=== PATIENT | female | born 1960 | race Caucasian/White ===

== ENCOUNTER 2018-08-04 07:07 | Inpatient (IN) ==
[2018-08-04] MEDS ORDERED: Bupivacaine/Epinephrine Inj 0.25% 50 ML Vial ONE (07:32)
[2018-08-04] MEDS ORDERED: Metoprolol Tartrate 25 MG Tablet PO SCH (07:50)
[2018-08-04] MEDS ORDERED: Chlorhexidine Gluconate 2% 1 Pack (2 Cloths) TOPICAL SCH (07:50)
[2018-08-04] MEDS ORDERED: Sodium Chlor 0.9% Inj 500 ML IV.SIG SCH (08:00)
[2018-08-04] MEDS ORDERED: Sodium Chlor 0.9% Inj 250 ML ONE (08:28)
[2018-08-04] MEDS ORDERED: Chlorhexidine 4% Topical 120 APPLIC/120 ML Bottle TOPICAL SCH (08:30)
[2018-08-04] MEDS ORDERED: ceFAZolin 2 GM Premix Inj 2 GM/50 ML PIGGYBACK IV.SIG SCH (09:00)
[2018-08-04] MEDS ORDERED: Vancomycin Inj 1,000 MG in Sodium Chlor 0.9% Inj 250 ML IV.SIG SCH (09:00)
[2018-08-04] MEDS ORDERED: Bisacodyl 10 MG Supp RECTAL PRN (12:16)
[2018-08-04] MEDS ORDERED: Post-op Orders (for Pharmacy) OTHER STA (12:16)
[2018-08-04] MEDS ORDERED: Morphine Inj 4 MG/ML Vial IV.PUSH PRN (12:16)
--- NOTE | 2018-08-04 12:23 | P.OP ---
- Preoperative Diagnosis (1) Cervical disc herniation Preoperative Diagnosis: Herniated nucleus pulposus at C4-5, C5-6, C6-7. Right greater than left cervical radiculopathy. Postoperative Diagnosis: Same Date of procedure: 08/04/18 Procedure: Posterior cervical fusion C4-5, C5-6 and C6-7 posterior Placement of intra-facet cage C4-5 bilateral, C5-6 bilateral, C6-7 bilateral. Left posterior iliac crest bone graft. Bone grafting of the cervical spine Anesthesia: GETA Surgeon: Zuhair Garcia MD Bolt Machine Operator: Beth Sahu PA-C Operation and Findings: EBL: 50 cc INDICATIONS: This patient is a 58-year-old female with a work-related injury to her cervical spine. She has evidence of a 2 level disc herniation with an osteophyte disc complex and an unstable third level. She is having progressive radicular findings in developing a very hard radiculopathy. She now presents for surgical treatment. NOTE: Beth Sahu PA-C was present for the entire surgical procedure as my nurse first assist. In my medical opinion her skill and care was necessary for proper management of this patient PROCEDURE: The patient was brought the operating room and anesthetized in the supine position. The patient was positioned prone on a Armando table. The arms were placed out along the side and taping was utilized to ensure adequate visualization. AP and lateral radiographic images were used identifying the proper level and allowing excellent exposure for purpose of the cervical fusion. A timeout was done and antibiotics were given within a routine time window. A small incision was made over the left iliac crest bone graft. A series of cores of bone graft were harvested with a special percutaneous device. The bone graft was taken to the back table to be mixed with stem cell bone graft for the later part of the case Using AP and lateral radiographs, skin markings were made. On the right side and 18-gauge spinal needle was placed down to the proper level. The left side a separate incision was made and we used the PusherRAX system. Exposure was afforded down to the proper level. Under visualization, a chisel was placed down to the C C6-7 level. This was confirmed under radiographs to be in proper position. Exposure was satisfactory. This is placed down into the facet joint at that level. A decorticating device was utilized decorticating the bone of the facet above and below. A retractor was placed down over the access chisel allowing exposure to the joint and exposure to the articular cartilage. A drilling system was utilized removing cartilage and bone this region followed by a rasp. On the back table demineralized bone matrix was mixed with Nucel stem cells and a autogenous bone graft. A combination of both these were then paced placed into proper cages. The cages were impacted into the proper position and checked again under AP and lateral fluoroscopic images. A transfixation screw was placed into the cage having excellent fixation into the facet joint of the level above. The back side of the cage was filled with additional bone graft which was tamped into position. The retractor was removed. On the right side a separate incision was made. Using the likewise sequence of access to the same level, an incision was made allowing visualization for placement of an access chisel which was placed into the joint followed by decortication with excellent visualization. A final retractor was positioned holding this while we were able to drill and use the rasp. The joint was prepared and we created a space for the cage. The cage was filled with bone graft and impacted in proper position. A transfixation screw was fixated at that time and alignment was satisfactory. Additional bone graft placed along the posterior aspect of the cage and the facet joint and was tamped into position. At the C5-6 level, this was repeated in the likewise fashion. A decorticating device was utilized decorticating the bone of the facet above and below. A retractor was placed down over the access chisel allowing exposure to the joint and exposure to the articular cartilage. A drilling system was utilized removing cartilage and bone this region followed by a rasp. On the back table demineralized bone matrix was mixed with Nucel stem cells and a autogenous bone graft. A combination of both these were then paced placed into proper cages. The cages were impacted into the proper position and checked again under AP and lateral fluoroscopic images. A transfixation screw was placed into the cage having excellent fixation into the facet joint of the level above. The back side of the cage was filled with additional bone graft which was tamped into position. The retractor was removed. On the right side this was repeated in the likewise fashion. Using the likewise sequence of access to the same level. An access chisel was placed into the joint followed by decortication with excellent visualization. A final retractor was positioned holding this while we were able to drill and use the rasp. The joint was prepared and we created a space for the cage. The cage was filled with bone graft and impacted in proper position. A transfixation screw was fixated at that time and alignment was satisfactory. Additional bone graft placed along the posterior aspect of the cage and the facet joint and was tamped into position. At the C4-5 level, this was repeated in the likewise fashion. A decorticating device was utilized decorticating the bone of the facet above and below. A retractor was placed down over the access chisel allowing exposure to the joint and exposure to the articular cartilage. A drilling system was utilized removing cartilage and bone this region followed by a rasp. On the back table demineralized bone matrix was mixed with Nucel stem cells and a autogenous bone graft. A combination of both these were then paced placed into proper cages. The cages were impacted into the proper position and checked again under AP and lateral fluoroscopic images. A transfixation screw was placed into the cage having excellent fixation into the facet joint of the level above. The back side of the cage was filled with additional bone graft which was tamped into position. The retractor was removed. On the right side this was repeated in the likewise fashion. Using the likewise sequence of access to the same level. An access chisel was placed into the joint followed by decortication with excellent visualization. A final retractor was positioned holding this while we were able to drill and use the rasp. The joint was prepared and we created a space for the cage. The cage was filled with bone graft and impacted in proper position. A transfixation screw was fixated at that time and alignment was satisfactory. Additional bone graft placed along the posterior aspect of the cage and the facet joint and was tamped into position. Intraoperative x-rays in AP and lateral plane showed excellent positioning and stabilization. The wound was irrigated copiously. Hemostasis was controlled. The fascia was closed with interrupted Vicryl suture skin and subcutaneous tissue with 3-0 Vicryl suture followed by Dermabond. The sponge count needle counts and sponge counts were all correct. The patient tolerated the procedure well as taken to the recovery room in satisfactory condition. FINDINGS: There was evidence of satisfactory alignment. Cage position was very satisfactory. There was no complication appreciated. We anticipate following this procedure in 2 weeks by an ACDF at the same 3 levels
--- NOTE | 2018-08-04 12:45 | XR ---
EXAM DATE: 08/04/2018 12:37 PM EST AGE/SEX: 58 years / Female INDICATIONS: Post-op C4-C5, C5-C6, C6-C7 posterior cervical fusion. CLINICAL DATA: This is the patient's initial encounter. Patient reports that signs and symptoms have been present for 1 day and indicates a pain score of Nonresponsive. MEDICAL/SURGICAL HISTORY: Non-responsive. Non-responsive. COMPARISON: No prior exams available for comparison. FINDINGS: AP and crosstable lateral views of the cervical spine demonstrate bilateral facet hardware at C4-5, C 5-6 and C6-7. Hardware appears grossly well-positioned. Sagittal alignment is maintained. Degenerativ e changes are noted at C5-6. CONCLUSION: 1. Posterior cervical fixation, as above. Electronically signed by: Favio Viramontes MD Board Certified Radiologist 08/04/2018 12:[address]
[2018-08-04] MEDS ORDERED: *morphine SULFATE 4 MG/ML PERIprocedure ONLY ONE (12:49)
[2018-08-04] MEDS ORDERED: fentaNYL Citrate Inj 100 MCG/2 ML Ampul ONE (12:54)
[2018-08-04] MEDS ORDERED: Morphine Inj 4 MG/ML Vial ONE (12:55)
[2018-08-04] MEDS ORDERED: *HYDROmorphone PF Inj 1 MG/ML Ampul PERIprocedural Use ONLY ONE ×2 (12:57→13:46)
[2018-08-04] MEDS: ceFAZolin 1 GM Premix Inj 1 GM/50 ML PIGGYBACK IV.SIG SCH ×2 (16:21→22:52)
[2018-08-04] MEDS: Senna/Docusate Sodium 8.6/50 MG Tablet PO SCH (20:27)
[2018-08-04] MEDS: Multivitamin/Minerals Therapeutic Tablet PO SCH (20:27)
[2018-08-04] MEDS ORDERED: Temazepam 15 MG Capsule PO PRN (21:00)
--- NOTE | 2018-08-04 22:15 | P.DS ---
Date of admission: 08/04/18 07:07 Primary care physician: No Primary Care Physician Attending physician on discharge: Zuhair Garcia Anticipated date of discharge: 08/05/18 DS: Diagnosis - Discharge Diagnosis (1) Cervical spinal stenosis Status: Acute (2) Cervical disc herniation Status: Acute DS: Medications - Discharge Medications Prescriptions: hydrocodone-acetaminophen 1 tab PO Q4H PRN #42 tab PRN Reason: Acute Pain DS: Summary - Time Spent with Patient Total time spent providing and/or coordinating discharge services: - Quality: VTE Deep Vein Thrombosis/Pulmonary Embolism Present on Admission: Yes Exam Vital signs: Vital Signs 08/04/18 08:02 08/04/18 12:34 08/04/18 12:45 Temperature 98.5 F 97.4 F L Pulse Rate 73 90 90 Respiratory Rate 18 14 15 Blood Pressure 142/89 H 144/68 H 140/67 Pulse Oximetry 97 100 100 08/04/18 13:00 08/04/18 13:15 08/04/18 13:30 Temperature Pulse Rate 92 H 81 76 Respiratory Rate 15 16 15 Blood Pressure 135/63 148/75 H 149/73 H Pulse Oximetry 100 100 100 08/04/18 14:00 08/04/18 15:00 08/04/18 15:20 Temperature 97.4 F L Pulse Rate 70 73 76 Respiratory Rate 16 15 15 Blood Pressure 157/71 H 122/59 L 130/68 Pulse Oximetry 100 100 100 08/04/18 16:00 08/04/18 19:30 Temperature 97.5 F L 97.6 F Pulse Rate 83 84 Respiratory Rate 17 18 Blood Pressure 137/71 149/73 H Pulse Oximetry 100 93 L Intake & Output 08/04/18 08/04/18 08/05/18 06:59 18:59 06:59 Intake Total 2630 / 2630 Output Total 30 / 30 Balance 2600 / 2600 Weight 69.5 kg Intake: IV 1050 / 1050 LR 1000 mL Inj 1,000 ML @ 30 1000 / 1000 mls/hr IV.SIG .Q24H FARRUKH Rx#: [id number] Ancef 1 GM Premix Inj 1 gm In 50 / 50 50 ml @ 100 mls/hr IV.SIG Q6H FARRUKH Rx#:[id number] Oral 480 / 480 Anesthesia Amount 1100 / 1100 Output: Estimated Blood Loss 30 / 30 Other: # Voids 1 Date of Last Bowel Movement 08/03/18 08/03/18 Weight On Admission 69.5 kg Results Procedures completed during hospitalization: Posterior cervical fusion C45, C56, C67, Posterior DTRAX instrumentation C4-7, bone graft - Impressions ITS Impressions Cervical Spine X-Ray 08/04/18 00:00 CONCLUSION: 1. Posterior cervical fixation, as above. Discharge Plan - Discharge Disposition Patient Disposition: Discharge Home - Discharge Condition Condition: Good - Discharge Order Discharge Orders: Discharge Order (Routine); Ordered 08/05/18 Ordered By: Zuhair Garcia - Physicians Team Primary Care Provider: Primary Care Do Mccabe Attending Provider: Zuhair Garcia - Rxs /Orders / Referrals /Forms Prescriptions: New hydrocodone-acetaminophen 7.5-325 mg Tablet 1 tab PO Q4H PRN (Reason: Acute Pain) Qty: 42 RF: 0 No Action No Known Home Medications Referrals: Primary Care Do Mccabe [Primary Care Provider] - See Instructions - Discharge Instructions Patient Printed Instructions: Laminectomy (DC) - Post Discharge Care Plan Care Plan Goals: Your Health Problems: Cervical spinal stenosis Cervical ankylosis Goals to Promote Your Health: * To prevent worsening of your condition * To maintain your health at the optimal level Directions to Meet Your Goals: * Take your medications as prescribed * Follow your dietary instruction. Pursue a high fiber diet for the next 3-5 days to avoid constipation that can commonly follow surgical treatment. Stay well hydrated. * Follow activity as directed. Wear your cervical collar multimedia production assistant. You can remove this for hygiene and showering beginning 48 hours after surgery. * Keep your appointments as scheduled * Take your immunizations and boosters as scheduled * If your symptoms worsen call your PCP * If no PCP go to Urgent Care or Emergency Room Smoking is dangerous to your health. Avoid second hand smoke. You may reach the 24-hour crisis hotline for domestic abuse at .
[2018-08-05] MEDS: ceFAZolin 1 GM Premix Inj 1 GM/50 ML PIGGYBACK IV.SIG SCH (05:27)
--- NOTE | 2018-08-05 07:58 | P.PNOP ---
Subjective Interval history: She is stable this morning. No new arm pain. Her right wrist and hand are improved though she still has some numbness. She notes quite a bit of posterior neck pain. No new CP or SOB. Physical Exam Vital signs: Vital Signs 08/04/18 08:02 08/04/18 12:34 08/04/18 12:45 Temperature 98.5 F 97.4 F L Pulse Rate 73 90 90 Respiratory Rate 18 14 15 Blood Pressure 142/89 H 144/68 H 140/67 Pulse Oximetry 97 100 100 08/04/18 13:00 08/04/18 13:15 08/04/18 13:30 Temperature Pulse Rate 92 H 81 76 Respiratory Rate 15 16 15 Blood Pressure 135/63 148/75 H 149/73 H Pulse Oximetry 100 100 100 08/04/18 14:00 08/04/18 15:00 08/04/18 15:20 Temperature 97.4 F L Pulse Rate 70 73 76 Respiratory Rate 16 15 15 Blood Pressure 157/71 H 122/59 L 130/68 Pulse Oximetry 100 100 100 08/04/18 16:00 08/04/18 19:30 08/04/18 23:28 Temperature 97.5 F L 97.6 F 97.9 F Pulse Rate 83 84 87 Respiratory Rate 17 18 18 Blood Pressure 137/71 149/73 H 110/59 L Pulse Oximetry 100 93 L 93 L 08/05/18 04:45 Temperature 97.9 F Pulse Rate 90 Respiratory Rate 18 Blood Pressure 112/55 L Pulse Oximetry 93 L Intake & Output 08/04/18 08/05/18 08/05/18 18:59 06:59 18:59 Intake Total 2630 / 2630 170 / 170 Output Total 30 / 30 Balance 2600 / 2600 170 / 170 Weight 69.5 kg 73 kg Intake: IV 1050 / 1050 50 / 50 LR 1000 mL Inj 1,000 ML @ 30 1000 / 1000 mls/hr IV.SIG .Q24H FARRUKH Rx#: [id number] Ancef 1 GM Premix Inj 1 gm In 50 / 50 50 / 50 50 ml @ 100 mls/hr IV.SIG Q6H FARRUKH Rx#:[id number] Oral 480 / 480 120 / 120 Anesthesia Amount 1100 / 1100 Output: Estimated Blood Loss 30 / 30 Other: # Voids 1 1 Date of Last Bowel Movement 08/03/18 08/03/18 Weight On Admission 69.5 kg Narrative: Laying in bed Wearing cervical collar NO acute distress C/S Dressing intact, minimal drainage, mild-moderate spasms, no erythema +motor brachiorad bilat, +sens (mild loss on right, stable from preop) Neg homans distal - Constitutional no acute distress Results - Imaging Impressions Cervical Spine X-Ray 08/04/18 00:00 CONCLUSION: 1. Posterior cervical fixation, as above. - Procedures Posterior cervical fusion C45, C56, C67, Posterior DTRAX instrumentation C4-7, bone graft Assessment and Plan - Problem List (1) Cervical spinal stenosis Code(s): M48.02 - Spinal stenosis, cervical region Status: Acute (2) Cervical disc herniation Code(s): M50.20 - Other cervical disc displacement, unspecified cervical region Status: Acute - Assessment and Plan pod#1 Posterior cervical fusion C4-C7, DTRAX, bone graft. Ortho stable. Moderate neck pain but arms are stable. Ok to d/c home later today. No new arm symptoms. Hold dressing changes for 72 hours unless saturated. Ok to change after that time and shower. Continue cervical collar signal timer (ok to remove for showering) PO pain meds as needed. F/U in 2 weeks as scheduled. Staged surgery in 3 weeks.
[2018-08-05] MEDS: Multivitamin/Minerals Therapeutic Tablet PO SCH (08:48)
[2018-08-05] MEDS: Senna/Docusate Sodium 8.6/50 MG Tablet PO SCH (08:48)
== END 2018-08-05 11:10 | disposition home or self-care (01) ==
LOC: HSDI 07:07 → INTOOBSV 07:07 → N06 15:31
PROVIDERS: ADMIT Orthopaedic Surgery Orthopaedic Surgery of the Spine; ATTEND Orthopaedic Surgery Orthopaedic Surgery of the Spine